=== PATIENT | male | born 1990 | race Caucasian/White ===

== ENCOUNTER 2018-02-18 09:07 | Emergency (ER) | payer SELFPAY ==
[~2018-02-18] VITALS: Ht 165.1 cm; Wt 83.0 kg
[2018-02-18] MEDS ORDERED: LIDOCAINE 2% VISCOUS 15 ML UDC PO ONE (09:30)
[2018-02-18] MEDS ORDERED: ANTACID SUSP 30 ML UDC (MYLANTA) PO ONE (09:30)
[2018-02-18] MEDS ORDERED: fentaNYL INJECTION 100 MCG/2 ML AMP IVP ONE (10:15)
[2018-02-18] MEDS ORDERED: raNItidine 50 MG/2 ML INJ (ZANTAC) IV ONE (10:15)
[2018-02-18 10:27] LABS: BASOPHILS # (AUTO) 0.1 10^3/uL (0.0-0.1); BASOPHILS % (AUTO) 1 % (0-10); EOSINOPHILS # (AUTO) 0.2 10^3/uL (0.0-0.3); EOSINOPHILS % (AUTO) 3 % (0-10); HEMATOCRIT 45 % (40-54); HEMOGLOBIN 15.6 G/DL (13.3-17.7); LYMPHOCYTES % (AUTO) 29 % (12-44); MEAN CORPUSCULAR HEMOGLOBIN 29 PG (25-34); MEAN CORPUSCULAR HGB CONC 35 G/DL (32-36); MEAN CORPUSCULAR VOLUME 83 FL (80-99); MEAN PLATELET VOLUME 10.4 FL (7.4-10.4); MONOCYTES # (AUTO) 0.7 X 10^3 (0.0-1.0); MONOCYTES % (AUTO) 11 % (0-12); NEUTROPHILS # (AUTO) 3.9 X 10^3 (1.8-7.8); NEUTROPHILS % (AUTO) 57 % (42-75); PLATELET COUNT 305 10^3/uL (130-400); RED BLOOD COUNT 5.37 10^6/uL (4.35-5.85); WHITE BLOOD COUNT 6.8 10^3/uL (4.3-11.0)
[2018-02-18 10:49] LABS: ALANINE AMINOTRANSFERASE 28 U/L (0-55); ALBUMIN 4.4 GM/DL (3.2-4.5); ALKALINE PHOSPHATASE 92 U/L (40-136); BILIRUBIN,TOTAL 0.4 MG/DL (0.1-1.0); BUN/CREATININE RATIO 19; CALCIUM 9.1 MG/DL (8.5-10.1); CARBON DIOXIDE 23 MMOL/L (21-32); CHLORIDE 110 MMOL/L (98-107); CREATININE SERUM 0.75 MG/DL (0.60-1.30); GFR ESTIMATED > 60; GLUCOSE 93 MG/DL (70-105); LIPASE 22 U/L (8-78); POTASSIUM 4.1 MMOL/L (3.6-5.0); SODIUM 141 MMOL/L (135-145); TOTAL PROTEIN 7.7 GM/DL (6.4-8.2)
--- NOTE | 2018-02-18 11:51 | Diagnostic Imaging Report ---
INDICATION: Right upper quadrant pain. COMPARISON: None. TECHNIQUE: Grayscale and Doppler ultrasound performed in the right upper quadrant of the abdomen to evaluate the liver and gallbladder. FINDINGS: The liver is normal in size and shape. The liver echogenicity is within normal limits. There are no focal lesions. No intrahepatic biliary dilatation is present. The common bile duct is not well seen. The main portal vein is hepatopetal. There is no gallbladder wall thickening or pericholecystic fluid. No shadowing stones are seen. There is a 5 mm echogenic structure along the wall of the posterior gallbladder, likely a small polyp or small non-shadowing adherent stone. No vascularity is seen. Sonographic Esqueda's sign is negative. The pancreas, IVC and aorta are well seen due to overlying bowel gas. The right kidney measures approximately 9.3 cm in length and has a normal appearance. No free fluid is seen. IMPRESSION: 1. No sonographic findings of cholecystitis. No shadowing gallstones are seen, although there is a 5 mm echogenic structure in the posterior gallbladder wall, likely a small polyp or adherent sludge/stone. Dictated by: Dictated on workstation # [id number]
[2018-02-18] MEDS ORDERED: FAMO-119 PO (12:22)
[2018-02-18] MEDS ORDERED: OMEP20TA7 PO (12:22)
--- NOTE | 2018-02-18 12:22 | ED General ---
General Chief Complaint: Chest Pain Stated Complaint: CP Nursing Triage Note: ARRIVED VIA AMB TO ROOM 03. COMPLAINS OF CHEST/EPIGASTRIC PAIN STARTING AT 0530 TODAY. STATES IT HURTS WHEN HE MOVES AROUND AND DOES NOT THINK HE WILL BE ABLE TO WORK TODAY. Nursing Sepsis Screen: No Definite Risk Source of Information: Patient Exam Limitations: No Limitations History of Present Illness Date Seen by Provider: February 18, 2018 Time Seen by Provider: 09:09 Initial Comments This 27 central gentleman presents to the emergency room with lower chest pain and epigastric pain that started upon waking in 05:15. He felt lightheaded associated with pain. Pain is worse with movement and palpation of the epigastric area. He denies any alcohol consumption. He has had no constipation , diarrhea, vomiting, or fever. Allergies and Home Medications Allergies Coded Allergies: latex (Verified Allergy, Severe, RASH, 02/18/18) Home Medications Famotidine 20 Mg Tablet, 20 MG PO BID Prescribed by: GRACE MAJANO on 02/18/18 1222 Omeprazole 20 Mg Tablet.dr, 20 MG PO BID Prescribed by: GRACE MAJANO on 02/18/18 1222 Patient Home Medication List Home Medication List Reviewed: Yes Review of Systems Constitutional: no symptoms reported EENTM: no symptoms reported Respiratory: no symptoms reported Cardiovascular: no symptoms reported Gastrointestinal: see HPI Genitourinary: no symptoms reported Musculoskeletal: no symptoms reported Skin: no symptoms reported Psychiatric/Neurological: No Symptoms Reported Hematologic/Lymphatic: No Symptoms Reported Past Cyyyawr-Zgrgux-Vkacrp Hx Past Med/Social Hx: Reviewed and Corrections made Patient Social History Alcohol Use: Occasionally Uses Recent Foreign Travel: No Contact w/Someone Who Travel: No Recent Infectious Disease Expo: No Past Medical History Surgeries: Yes (DENTAL) Respiratory: No Cardiac: No Neurological: No Genitourinary: No Gastrointestinal: No Musculoskeletal: No Endocrine: Yes (Subjective episodes of hypoglycemia) HEENT: No Cancer: No Psychosocial: No Integumentary: No Physical Exam Vital Signs Vital Signs - First Documented 02/18/18 09:22 Temp 98.0 Pulse 84 Resp 18 B/P (MAP) 118/80 (93) Pulse Ox 96 O2 Delivery Room Air Capillary Refill : Less Than 3 Seconds General Appearance: WD/WN, Mild Distress HEENT: PERRL/EOMI, Normal ENT Inspection, Pharynx Normal Neck: Normal Inspection Respiratory: Lungs Clear, Normal Breath Sounds, No Accessory Muscle Use, No Respiratory Distress Cardiovascular: Regular Rate, Rhythm, No Edema, No Murmur Gastrointestinal: Normal Bowel Sounds, Soft, Tenderness (Epigastrium) Extremity: Normal Inspection, No Pedal Edema Neurologic/Psychiatric: Alert, Oriented x3, No Motor/Sensory Deficits, Normal 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, 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 Skin: Normal Color, Warm/Dry Progress/Results/Core Measures Suspected Sepsis Recent Fever Within 48 Hours: No Infection Criteria Present: None New/Unexplained Altered Menta: No Sepsis Screen: No Definite Risk SIRS Temperature:98.0 Pulse: 84 Respiratory Rate: 18 Laboratory Tests 02/18/18 10:15: White Blood Count 6.8 Blood Pressure 118 /80 Mean: 93 Laboratory Tests 02/18/18 10:15: Creatinine 0.75, Platelet Count 305, Total Bilirubin 0.4 Results/Orders Lab Results Laboratory Tests Test 02/18/18 10:15 Range/Units White Blood Count 6.8 4.3-11.0 10^3/uL Red Blood Count 5.37 4.35-5.85 10^6/uL Hemoglobin 15.6 13.3-17.7 G/DL Hematocrit 45 40-54 % Mean Corpuscular Volume 83 80-99 FL Mean Corpuscular Hemoglobin 29 25-34 PG Mean Corpuscular Hemoglobin Concent 35 32-36 G/DL Red Cell Distribution Width 13.0 10.0-14.5 % Platelet Count 305 130-400 10^3/uL Mean Platelet Volume 10.4 7.4-10.4 FL Neutrophils (%) (Auto) 57 42-75 % Lymphocytes (%) (Auto) 29 12-44 % Monocytes (%) (Auto) 11 0-12 % Eosinophils (%) (Auto) 3 0-10 % Basophils (%) (Auto) 1 0-10 % Neutrophils # (Auto) 3.9 1.8-7.8 X 10^3 Lymphocytes # (Auto) 2.0 1.0-4.0 X 10^3 Monocytes # (Auto) 0.7 0.0-1.0 X 10^3 Eosinophils # (Auto) 0.2 0.0-0.3 10^3/uL Basophils # (Auto) 0.1 0.0-0.1 10^3/uL Sodium Level 141 135-145 MMOL/L Potassium Level 4.1 3.6-5.0 MMOL/L Chloride Level 110 H 98-107 MMOL/L Carbon Dioxide Level 23 21-32 MMOL/L Anion Gap 8 5-14 MMOL/L Blood Urea Nitrogen 14 7-18 MG/DL Creatinine 0.75 0.60-1.30 MG/DL Estimat Glomerular Filtration Rate > 60 BUN/Creatinine Ratio 19 Glucose Level 93 70-105 MG/DL Calcium Level 9.1 8.5-10.1 MG/DL Total Bilirubin 0.4 0.1-1.0 MG/DL Aspartate Amino Transf (AST/SGOT) 20 5-34 U/L Alanine Aminotransferase (ALT/SGPT) 28 0-55 U/L Alkaline Phosphatase 92 40-136 U/L Total Protein 7.7 6.4-8.2 GM/DL Albumin 4.4 3.2-4.5 GM/DL Lipase 22 8-78 U/L My Orders Orders - GRACE ROBLES MD Ekg Tracing (02/18/18 09:09) Lidocaine 2% Viscous 15 Ml (Xylocaine Vi (02/18/18 09:30) Antacid Suspension (Mylanta Suspension (02/18/18 09:30) Cbc With Automated Diff (02/18/18 10:11) Comprehensive Metabolic Panel (02/18/18 10:11) Lipase (02/18/18 10:11) Saline Lock/Iv-Start (02/18/18 10:11) Ranitidine Injection (Zantac Injection) (02/18/18 10:15) Fentanyl Injection (Sublimaze Injection (02/18/18 10:15) Us Gallbladder [id number] (02/18/18 10:44) Iv Push Clam Shucker Ed (02/18/18 ) Medications Given in ED Vital Signs/I&O Capillary Refill : Less Than 3 Seconds Blood Pressure Mean: 93 Progress Note : Progress Note Patient was given a GI cocktail. This initially improved his pain but pain quickly rebounded. Fentanyl was given for further pain control. Ranitidine was also given. Options were discussed and patient wished to proceed with a gallbladder ultrasound. Gallbladder ultrasound was negative. Patient was ultimately discharged home with suspicion of symptoms caused by gastritis. Discharge instructions were discussed. He was feeling significantly improved at the time of dismissal. ECG Initial ECG Impression Date: February 18, 2018 Initial ECG Impression Time: 09:14 Initial ECG Rate: 84 Initial ECG Rhythm: Normal Sinus Initial ECG Intervals: Normal Initial ECG Impression: Normal Comment Normal sinus rhythm with no ST elevation or depression. No abnormal intervals or axis deviation. Diagnostic Imaging Diagonstic Imaging: Ultrasound Plain Films/CT/US/NM/MRI: abdomen Comments Gallbladder ultrasound report reviewed. See report below: NAME: SHADI BOWIE [facility] REC#: [id number] PT STATUS: REG ER : 1990 PHYSICIAN: GRACE ROBLES MD ADMIT DATE: 02/18/18/ER Signed Date of Exam: 02/18/18 US GALLBLADDER [id number] INDICATION: Right upper quadrant pain. COMPARISON: None. TECHNIQUE: Grayscale and Doppler ultrasound performed in the right upper quadrant of the abdomen to evaluate the liver and gallbladder. FINDINGS: The liver is normal in size and shape. The liver echogenicity is within normal limits. There are no focal lesions. No intrahepatic biliary dilatation is present. The common bile duct is not well seen. The main portal vein is hepatopetal. There is no gallbladder wall thickening or pericholecystic fluid. No shadowing stones are seen. There is a 5 mm echogenic structure along the wall of the posterior gallbladder, likely a small polyp or small non-shadowing adherent stone. No vascularity is seen. Sonographic Esqueda's sign is negative. The pancreas, IVC and aorta are well seen due to overlying bowel gas. The right kidney measures approximately 9.3 cm in length and has a normal appearance. No free fluid is seen. IMPRESSION: 1. No sonographic findings of cholecystitis. No shadowing gallstones are seen, although there is a 5 mm echogenic structure in the posterior gallbladder wall, likely a small polyp or adherent sludge/stone. Dictated by: Dictated on workstation # [id number] Dict: 02/18/18 1143 Trans: 02/18/18 1155 Interpreted by: BINU PIERCE MD Electronically signed by: BINU PIERCE MD 02/18/18 1155 Departure Impression Primary Impression: Epigastric pain Disposition: 01 HOME, SELF-CARE Condition: Improved Departure-Patient Inst. Decision time for Depature: 12:10 Referrals: [facility],LOCAL PHYSICIAN (PCP) Primary Care Physician Patient Instructions: Acute Abdomen (Belly Pain) Add. Discharge Instructions: Your abdominal pain may be caused by gastritis and/or ulcers. Drink plenty of clear liquids. Try to stay with a clear liquid diet today which would include water, sports drinks, Jell-O, broth, etc. Take Pepcid (famotidine) and Prilosec (omeprazole) as prescribed for at least 2 weeks. These may be purchased [id number] as generics. Avoid the following: Eating large meals, eating close to bedtime, caffeine, carbonation, citrus fruits and juices, chocolate, mints, tomato products, tobacco products, alcohol, NSAID medications such as ibuprofen or naproxen, spicy foods, or anything else you know irritates your stomach. Make a follow-up appointment with a primary care provider soon as possible. Return to emergency room if you have worsening symptoms. You may take Tylenol (acetaminophen) up to 1000 mg every 6 hours as needed for pain. All discharge instructions reviewed with patient and/or family. Voiced understanding. Scripts Omeprazole (Omeprazole) 20 Mg Tablet. 20 MG PO BID, #60 TAB Prov: GRACE ROBLES MD 02/18/18 Famotidine (Pepcid) 20 Mg Tablet 20 MG PO BID, #60 TAB Prov: GRACE ROBLES MD 02/18/18 GRACE ROBLES MD February 18, 2018 12:22
[2018-02-18 12:31] VITALS: BP 126/76
== END 2018-02-18 12:31 | disposition home or self-care (01) ==
LOC: ER 09:10
DX: R10.13 Epigastric pain (principal)
CPT/HCPCS: 36415; 76705; 80053; 83690; 85025; 93005; 96374; 96375

== ENCOUNTER → 2019-04-05 | Outpatient (CLI) | payer OTHER ==
[~2019-04-05] MED LIST: FAMO-119 PO; OMEP20TA7 PO
== END ==
LOC: LABNPT 22:15
PROVIDERS: ATTEND Nurse Practitioner Family
DX: Z01.89 Encounter for other specified special examinations (principal)
CPT/HCPCS: 85652

== ENCOUNTER 2022-04-01 19:46 | Emergency (ER) | payer SELFPAY ==
[~2022-04-01] VITALS: Ht 165.1 cm; Wt 95.7 kg
[~2022-04-01 19:46] MED LIST changes: +OMEP20TA56 PO; -OMEP20TA7 PO
--- NOTE | 2022-04-01 20:30 | ED EENT ---
History of Present Illness General Chief Complaint: Head/Cervical Problems Stated Complaint: SWOLLEN LYMPH NODES/L SIDE NECK PAIN Source: patient Exam Limitations: no limitations (DELBERT SORIANO) History of Present Illness Date Seen by Provider: Apr 01, 2022 Time Seen by Provider: 20:28 Initial Comments Patient is a 31-year-old male who presents ED with left-sided jaw facial pain. Symptoms started on Friday. Described as sharp. Patient noted some pain that radiates to the left-sided ear to the left-sided neck. Noted some swelling yesterday below his left jaw but the swelling has improved. Went to the clinic on Friday was placed on Augmentin. Has taken a day and a half for the antibiotics. Swelling has improved. Still having pain with no improvement with ibuprofen. Patient was not able to sleep last night. Denies of any specific dental tenderness. Mild sore throat but does have pain with eating with his left-sided jaw. [facility] were concerned for possible infected salivary gland. Denies headache, visual change, nausea, vomiting, diarrhea, posterior neck pain, fever, chills (DELBERT SORIANO) Allergies and Home Medications Allergies Coded Allergies: latex (Verified Allergy, Severe, RASH, 02/18/18) Patient Home Medication List Home Medication List Reviewed: Yes (DELBERT SORIAON) Famotidine (Pepcid) 20 Mg Tablet, 20 MG PO BID Prescribed by: GRACE MAJANO on 02/18/18 1222 Omeprazole (Omeprazole) 20 Mg Tablet.dr, 20 MG PO BID Prescribed by: GRACE MAJANO on 02/18/18 1222 Review of Systems Review of Systems Constitutional: No chills, No diaphoresis, No weakness Eyes: Denies Blurred Vision, Denies Drainage, Denies Decreased Acuity Ears: Denies Dizziness, Denies Pain, Denies Tinnitus, Denies Bloody Discharge, Denies Clear Discharge, Denies Purulent Discharge Nose: denies clots Mouth: denies loose teeth Throat: pain; denies swelling; painful swallowing Respiratory: No cough Cardiovascular: No chest pain Gastrointestinal: No abdominal pain, No diarrhea, No nausea, No vomiting Musculoskeletal: No back pain, No joint pain; neck pain Skin: No change in color, No change in hair/nails Neurological: Denies Anxiety, Denies Depressed (DELBERT SORIANO) Past Nxrjyxd-Kphfib-Yottvk Hx Past Medical History Surgeries: Yes (DENTAL) Respiratory: No Cardiac: No Neurological: No Genitourinary: No Gastrointestinal: No Musculoskeletal: No Endocrine: Yes (Subjective episodes of hypoglycemia) HEENT: No Cancer: No Psychosocial: No Integumentary: No (DELBERT SORIANO) Physical Exam Vital Signs Vital Signs - First Documented 04/01/22 20:00 Temp 37.3 Pulse 83 Resp 20 B/P (MAP) 149/100 (116) Pulse Ox 97 (CHANELL,AB K DO) Height, Weight, BMI Height: 5'5.00" Weight: 183lbs. oz. 83.606939vp; BMI Method:Stated General Appearance: WD/WN, no apparent distress Eyes: bilateral eye normal inspection, bilateral eye PERRL, bilateral eye EOMI, bilateral eye abnormal pupil Ears: bilateral ear auricle normal, bilateral ear canal normal, bilateral ear TM normal Nose: normal inspection, active bleeding Mouth/Throat: normal mouth inspection, pharynx normal; No dental tenderness; other (Left-sided maxillary sinus tenderness) Neck: non-tender, full range of motion, supple, normal inspection Cardiovascular: regular rate, rhythm, no edema, no gallop, no JVD Respiratory: chest non-tender, lungs clear, normal breath sounds, no respiratory distress, no accessory muscle use Gastrointestinal: normal bowel sounds, non tender Neurologic/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: 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 as tested, no motor/sensory deficits, alert, normal mood/affect, oriented x 3 Skin: normal color, warm/dry (DELBERT SORIANO) Progress/Results/Core Measures Results/Orders Lab Results Laboratory Tests Test 04/01/22 20:18 04/01/22 20:35 Range/Units Influenza Type A (RT-PCR) Not Detected Not Detecte Influenza Type B (RT-PCR) Not Detected Not Detecte SARS-CoV-2 RNA (RT-PCR) Detected H Not Detecte Group A Streptococcus Screen NEGATIVE NEGATIVE White Blood Count 10.4 4.3-11.0 10^3/uL Red Blood Count 5.30 4.30-5.52 10^6/uL Hemoglobin 15.2 13.3-17.7 g/dL Hematocrit 46 40-54 % Mean Corpuscular Volume 87 80-99 fL Mean Corpuscular Hemoglobin 29 25-34 pg Mean Corpuscular Hemoglobin Concent 33 32-36 g/dL Red Cell Distribution Width 12.4 10.0-14.5 % Platelet Count 333 130-400 10^3/uL Mean Platelet Volume 10.4 9.0-12.2 fL Immature Granulocyte % (Auto) 0 % Neutrophils (%) (Auto) 72 42-75 % Lymphocytes (%) (Auto) 19 12-44 % Monocytes (%) (Auto) 7 0-12 % Eosinophils (%) (Auto) 2 0-10 % Basophils (%) (Auto) 1 0-10 % Neutrophils # (Auto) 7.5 1.8-7.8 10^3/uL Lymphocytes # (Auto) 1.9 1.0-4.0 10^3/uL Monocytes # (Auto) 0.7 0.0-1.0 10^3/uL Eosinophils # (Auto) 0.2 0.0-0.3 10^3/uL Basophils # (Auto) 0.1 0.0-0.1 10^3/uL Immature Granulocyte # (Auto) 0.0 0.0-0.1 10^3/uL Sodium Level 140 135-145 MMOL/L Potassium Level 3.9 3.6-5.0 MMOL/L Chloride Level 107 98-107 MMOL/L Carbon Dioxide Level 22 21-32 MMOL/L Anion Gap 11 5-14 MMOL/L Blood Urea Nitrogen 11 7-18 MG/DL Creatinine 0.98 0.60-1.30 MG/DL Estimat Glomerular Filtration Rate 106 BUN/Creatinine Ratio 11 Glucose Level 94 70-105 MG/DL Calcium Level 9.2 8.5-10.1 MG/DL Corrected Calcium 9.0 8.5-10.1 MG/DL Total Bilirubin 0.3 0.1-1.0 MG/DL Aspartate Amino Transf (AST/SGOT) 18 5-34 U/L Alanine Aminotransferase (ALT/SGPT) 24 0-55 U/L Alkaline Phosphatase 109 40-136 U/L Total Protein 7.9 6.4-8.2 GM/DL Albumin 4.3 3.2-4.5 GM/DL Monoscreen NEGATIVE NEGATIVE (AB LUA DO) Vital Signs/I&O 04/01/22 04/01/22 20:00 21:25 Temp 37.3 Pulse 83 80 Resp 20 B/P (MAP) 149/100 (116) 135/91 Pulse Ox 97 98 (AB LUA DO) Departure Communication (Admissions) Patient tested positive for COVID. Patient has left-sided facial pain that has worsened. Bilateral TMs clear. Oropharynx pink without erythema, swelling, exudate. Strep A was negative. Lab work was otherwise unremarkable. Patient Was placed on Augmentin on Friday concern for potential dental infection versus sinus infection versus salivary gland infection no evidence of rash.. Pain with eating. Patient does have some poor dentition without evidence of palpable abscess. No severe facial swelling or lymphadenopathy noted. Concern for left maxillary sinusitis. Chronic right maxillary sinusitis. No obvious lymphadenopathy or evidence of Chang angina. No parotid tenderness. Patient not up-to-date his COVID-vaccine. Recommend quarantine for the next 10 days. Patient is otherwise healthy. Conserve treatment at this time. Continue with Augmentin which should continue did notice improvement to the left-sided facial pain. If continue having pain may need to follow-up with a dentist. No strong evidence of lymphadenopathy near the cervical chain bilateral. No meningeal signs. Return precaution were discussed with patient. (DELBERT SORIANO) Impression Primary Impression: Sinusitis Additional Impression: COVID-19 Disposition: HOME, SELF-CARE Condition: Stable Departure-Patient Inst. Decision time for Depature: 21:16 (DELBERT SORIANO) Referrals: [facility],LOCAL PHYSICIAN (PCP) Primary Care Physician Patient Instructions: COVID-19 ED Work/School Note: Work Release Form Date Seen in the Emergency Department: Apr 01, 2022 Return to Work: Apr 10, 2022 ATTENDING PHYSICIAN NOTE: I WAS PHYSICALLY PRESENT ER PHYSICIAN, BUT I WAS NOT INVOLVED IN ANY DECISION MAKING OR ANY CARE OF THIS PATIENT. (AB LUA DO) DELBERT SORIANO Apr 01, 2022 20:30 AB LUA DO Apr 02, 2022 01:31
[2022-04-01 20:44] LABS: BASOPHILS # (AUTO) 0.1 10^3/uL (0.0-0.1); BASOPHILS % (AUTO) 1 % (0-10); EOSINOPHILS # (AUTO) 0.2 10^3/uL (0.0-0.3); EOSINOPHILS % (AUTO) 2 % (0-10); HEMATOCRIT 46 % (40-54); HEMOGLOBIN 15.2 g/dL (13.3-17.7); LYMPHOCYTES # (AUTO) 1.9 10^3/uL (1.0-4.0); LYMPHOCYTES % (AUTO) 19 % (12-44); MEAN CORPUSCULAR HEMOGLOBIN 29 pg (25-34); MEAN CORPUSCULAR HGB CONC 33 g/dL (32-36); MEAN CORPUSCULAR VOLUME 87 fL (80-99); MEAN PLATELET VOLUME 10.4 fL (9.0-12.2); MONOCYTES # (AUTO) 0.7 10^3/uL (0.0-1.0); MONOCYTES % (AUTO) 7 % (0-12); NEUTROPHILS # (AUTO) 7.5 10^3/uL (1.8-7.8); NEUTROPHILS % (AUTO) 72 % (42-75); PLATELET COUNT 333 10^3/uL (130-400); WHITE BLOOD COUNT 10.4 10^3/uL (4.3-11.0)
--- NOTE | 2022-04-01 20:56 | Diagnostic Imaging Report ---
PROCEDURE: CT maxillofacial without contrast. TECHNIQUE: Multiple contiguous axial images were obtained through the facial bones without the use of intravenous contrast. Auto Exposure Controls were utilized during the CT exam to meet ALARA standards for radiation dose reduction. INDICATION: Left-sided facial pain. Worsening over the last day. COMPARISON: None. FINDINGS: No acute facial fractures. The mandible, zygomatic arches, and pterygoid plates are intact. The bilateral TMJ are intact. The nasal bones and nasal septum have a normal appearance without acute fracture. Retained secretions are seen in the left maxillary sinus. Retained secretions are also seen in the right sphenoid sinus. There is wall thickening and mild mucosal thickening involving the right maxillary sinus. The mastoid air cells are clear. The middle ear cavities are clear. The included intracranial contents are unremarkable. The globes and orbits are symmetric and have a normal appearance. No evidence of globe rupture. No post septal inflammatory changes are seen. The included upper cervical spine is in normal appearance. The craniocervical junction is intact. IMPRESSION: 1. Sinusitis involving the left maxillary sinus. This may represent the patient's history of left-sided facial pain. No CT evidence of extra sinus spread of disease. 2. Findings suggestive of chronic sinusitis in the right maxillary sinus. 3. No acute facial fractures. Dictated by: Dictated on workstation # [id number]
[2022-04-01 21:07] LABS: ALBUMIN 4.3 GM/DL (3.2-4.5); POTASSIUM 3.9 MMOL/L (3.6-5.0)
[2022-04-01 21:09] LABS: CALCIUM 9.2 MG/DL (8.5-10.1)
[2022-04-01 21:10] LABS: TOTAL PROTEIN 7.9 GM/DL (6.4-8.2)
[2022-04-01 21:11] LABS: BILIRUBIN,TOTAL 0.3 MG/DL (0.1-1.0)
[2022-04-01 21:13] LABS: CREATININE SERUM 0.98 MG/DL (0.60-1.30)
[2022-04-01 21:25] VITALS: BP 135/91
== END 2022-04-01 21:26 | disposition home or self-care (01) ==
LOC: EDUNIT# 19:46 → ER 19:47
DX: U07.1 COVID-19 (principal); J32.0 Chronic maxillary sinusitis; Z91.040 Latex allergy status
CPT/HCPCS: 36415; 70486; 80053; 85025; 86308; 87430; 87636